=== PATIENT | female | born 1975 | race African-American/Black ===

== ENCOUNTER 2019-06-26 08:32 | Emergency (ER) | payer MEDICAID ==
[2019-06-26] MEDS ORDERED: HYDROCODONE/APAP 5/325MG TABLET PO ONE (08:53)
[2019-06-26 09:15] LABS: ABSOLUTE NEUTROPHIL COUNT 6.62; BASO % 0.4 % (0-6); EOS % 2.3 % (0-6); GRAN % 66.2 % (47-80); HEMATOCRIT 38.7 % (35.0-47.0); HEMOGLOBIN 12.3 gm/dl (11.6-16.0); MEAN CORPUSCULAR HEMOGLOBIN 32.1 pg (27-33); MEAN CORPUSCULAR HGB CONC 31.8 g/dl (32-36); MEAN PLATELET VOLUME 9.1 fl (7.4-10.4); MONO % 9.1 % (0-9); PLATELET COUNT 376 K/uL (130-400); RED BLOOD COUNT 3.83 M/uL (3.80-5.40); RED CELL DISTRIBUTION WIDTH 14.4 % (11.5-14.5)
--- NOTE | 2019-06-26 12:09 | Emergency Department Record ---
History of Present Illness - General Chief Complaint: General Stated Complaint: BREAST ISSUE Time Seen by Provider: 06/26/19 08:46 Source: Patient Mode of Arrival: Ambulatory Limitations: No limitations - History of Present Illness Initial comments: pt has had a spot on her l breast for a year that her family doctor wanted her to follow up with aspecialist which she chose not to do. today that spot has become tender and feels like it is going to explode Onset/Timin -: Year(s) Location: Other Quality: Aching, Burning Consistency: Getting worse Worsens with: Other Associated Symptoms: Denies other symptoms - [place] Coma Scale Eye Response: (4) Open spontaneously Motor Response: (6) Obeys commands Verbal Response: (5) Oriented [place] Total: 15 - Related Data Home Medications Medication Instructions Recorded Confirmed Last Taken Ibuprofen [Motrin] 800 mg PO Q6H PRN 06/26/19 06/26/19 Unknown Multivit-Min/Folic Acid/Biotin 1 each PO DAILY 06/26/19 06/26/19 Unknown [Hair, Skin & Nails Caplet] Previous Rx's Medication Instructions Recorded Amoxicillin/Potassium Clav 1 each PO BID #20 tablet 06/26/19 [Augmentin 875Mg/125Mg] Hydrocodone/Acetaminophen [[place] 1 each PO Q6HR #10 tablet 06/26/19 5-325 Tablet] Allergies Allergy/AdvReac Type Severity Reaction Status Date / Time No Known Drug Allergies Allergy Verified 06/26/19 08:42 Travel/Exposure Screening - Travel/Exposure Within Last 30 Days Have you traveled within the last 30 days?: No - Additonal Travel/Exposure Details Have you been exposed to anyone with a communicable illness?: No Review of Systems Reviewed: No additional complaints except as noted below Constitutional: Reports: As per HPI. Denies: Chills, Fever, Malaise, Night sweats, Weakness, Weight change Eyes: Reports: As per HPI. Denies: Eye discharge, Eye pain, Photophobia, Vision change ENT: Reports: As per HPI. Denies: Congestion, Dental pain, Ear pain, Epistaxis, Hearing loss, Throat pain Respiratory: Reports: As per HPI. Denies: Cough, Dyspnea, Hemoptysis, Stridor, Wheezes Cardiovascular: Reports: As per HPI. Denies: Arrhythmia, Chest pain, Dyspnea on exertion, Edema, Murmurs, Orthopnea, Palpitations, Paroxysmal nocturnal dyspnea, Rheumatic Fever, Syncope Endocrine: Reports: As per HPI. Denies: Fatigue, Heat or cold intolerance, Polydipsia, Polyuria Gastrointestinal: Reports: As per HPI. Denies: Abdominal pain, Constipation, Diarrhea, Hematemesis, Hematochezia, Melena, Nausea, Vomiting Genitourinary: Reports: As per HPI. Denies: Abnormal menses, Discharge, Dyspareunia, Dysuria, Frequency, Hematuria, Incontinence, Retention, Urgency Musculoskeletal: Reports: As per HPI. Denies: Arthralgia, Back pain, Gout, Joint swelling, Myalgia, Neck pain Skin: Reports: As per HPI. Denies: Bruising, Change in color, Change in hair/nails, Lesions, Pruritus, Rash Neurological: Reports: As per HPI. Denies: Abnormal gait, Confusion, Headache, Numbness, Paresthesias, Seizure, Tingling, Tremors, Vertigo, Weakness Psychiatric: Reports: As per HPI. Denies: Anxiety, Auditory hallucinations, Depression, Homicidal thoughts, Suicidal thoughts, Visual hallucinations Hematological/Lymphatic: Reports: As per HPI. Denies: Anemia, Blood Clots, Easy bleeding, Easy bruising, Swollen glands Past Medical History - SOCIAL HISTORY Smoking Status: Current every day smoker Alcohol Use: Occasional Drug Use: None - RESPIRATORY Hx Respiratory Disorders: No - CARDIOVASCULAR Hx Cardio Disorders: No - NEURO Hx Neuro Disorders: No - GI Hx GI Disorders: No - Hx Genitourinary Disorders: No - ENDOCRINE Hx Endocrine Disorders: No - MUSCULOSKELETAL Hx Musculoskeletal Disorders: No - PSYCH Hx Psych Problems: No - HEMATOLOGY/ONCOLOGY Hx Hematology/Oncology Disorders: No Family Medical History Any Significant Family History?: Yes Hx Cancer: Mother Hx Diabetes: Father Physical Exam - General General Appearance: Alert, Oriented x3, Cooperative, Mild distress - Head Head exam: Normal inspection - Eye Eye exam: Normal appearance, PERRL, EOMI Pupils: Normal accommodation - ENT ENT exam: Normal exam, Mucous membranes moist, Normal external ear exam, Normal orophraynx Ear exam: Normal external inspection. negative: External canal tenderness Nasal Exam: Normal inspection. negative: Discharge, Sinus tenderness Mouth exam: Normal external inspection, Tongue normal Teeth exam: Normal inspection. negative: Dental caries Throat exam: Normal inspection. negative: Tonsillar erythema, Tonsillar exudate - Neck Neck exam: Normal inspection, Full ROM. negative: Tenderness - Respiratory Respiratory exam: Normal lung sounds bilaterally, Chest wall tenderness, Other (l breast has an area of tenderness, swelling and erythems on lateral aspect). negative: Respiratory distress - Cardiovascular Cardiovascular Exam: Regular rate, Normal rhythm, Normal heart sounds - GI/Abdominal GI/Abdominal exam: Soft, Normal bowel sounds. negative: Tenderness - Rectal Rectal exam: Deferred - exam: Deferred - Extremities Extremities exam: Normal inspection, Full ROM, Normal capillary refill. negative: Tenderness - Back Back exam: Reports: Normal inspection, Full ROM. Denies: Muscle spasm, Rash noted, Tenderness - Neurological Neurological exam: Alert, CN II-XII intact, Normal gait, Oriented X3 - Psychiatric Psychiatric exam: Normal affect, Normal mood - Skin Skin exam: Dry, Intact, Normal color, Warm Course Vital Signs 06/26/19 06/26/19 08:37 11:38 Temperature 99.3 F Pulse Rate 98 H Pulse Rate [ 80 Pulse Ox Probe] Respiratory 20 20 Rate Blood Pressure 147/98 Blood Pressure 125/84 [Left Arm] Pulse Ox 100 99 - Reevaluation(s) Reevaluation #1: 06/26/19 13:55 d/w dr damon who will see pt in 2 days when he will do bx. us shows mass and states malignancy can not be excluded 06/26/19 13:56 Medical Decision Making - Lab Data Result diagrams: 06/26/19 09:00 Lab Results 06/26/19 Range/Units 09:00 WBC 10.0 (4.2-12.2) K/uL RBC 3.83 (3.80-5.40) M/uL Hgb 12.3 (11.6-16.0) gm/dl Hct 38.7 (35.0-47.0) % MCV 101.0 H (81-97) fl MCH 32.1 (27-33) pg MCHC 31.8 L (32-36) g/dl RDW 14.4 (11.5-14.5) % Plt Count 376 (130-400) K/uL MPV 9.1 (7.4-10.4) fl Gran % 66.2 (47-80) % Lymphocytes % 22.0 (16-45) % Monocytes % 9.1 H (0-9) % Eosinophils % 2.3 (0-6) % Basophils % 0.4 (0-6) % Absolute Neutrophils 6.62 Disposition Disposition: Discharge Clinical Impression: Breast mass, left Disposition: Home, Self-Care Condition: (1) Good Instructions: Breast Mass (ED) Additional Instructions: follow up with dr damon on . return sooner if worse Prescriptions: Hydrocodone/Acetaminophen [[place] 5-325 Tablet] 1 each PO Q6HR #10 tablet Amoxicillin/Potassium Clav [Augmentin 875Mg/125Mg] 1 each PO BID #20 tablet Referrals: Abdirizak Damon D.O. [DOCTOR OF OSTEOPATH] - Forms: Patient Portal Access, Return to Work/School Quality - Quality Measures Quality Measures: N/A - Blood Pressure Screening Does Patient Have Any of the Following: No Blood Pressure Classification: Hypertensive Reading Systolic Measurement: 147 Diastolic Measurement: 98 Screening for High Blood Pressure: < First Hypertensive BP, F/U Documented > [G8950] First Hypertensive Follow-up Interventions: Follow-up with rescreen GT 1 day and LT 4 weeks.
--- NOTE | 2019-06-26 12:12 | ULTRASOUND REPORT ---
EXAMINATION: Limited Left Breast Ultrasound EXAM DATE: 06/26/2019 10:33 AM TECHNIQUE: Real-time limited ultrasound evaluation of the left breast was performed. INDICATION: mass for a year COMPARISON: No comparison exam is available. FINDINGS: Within the left breast at 2:00, 5 cm from the nipple, there is a subcutaneous 1.08 cm x 1.68 cm x 1.8 cm isoechoic to hypoechoic mass. There is increased vascularity surrounding this mass. Neoplastic et iology cannot excluded. A diagnostic mammogram is recommended for further evaluation. ML projection of the left breast is recommended. Spot compression view of the left breast in the ML and CC projecti ons are recommended. Targeted ultrasound examination of the left breast is recommended. IMPRESSION: 1. Isoechoic to hypoechoic mass within the left breast at 2:00, 5 cm from the nipple is noted as katrina cribed. Neoplastic etiology cannot be excluded. I would recommend mammographic correlation as discuss ed above. BI-RADS Category: 0 Incomplete - Need Additional Imaging Evaluation and/or Prior Mammograms for Julio rison. Dictated by: Shon Barber MD on 06/26/2019 12:06 PM. .
[2019-06-26] MEDS ORDERED: AMPICILLIN SODIUM/SULBACTAM NA 3 G in 0.9 % SODIUM CHLORIDE 100ML 100 ML IVPB ONE (13:43)
== END 2019-06-26 14:42 | disposition home or self-care (01) ==
LOC: ER 08:32
DX: N63.20 Unspecified lump in the left breast, unspecified quadrant (principal); F17.210 Nicotine dependence, cigarettes, uncomplicated
CPT/HCPCS: 85025; 96365; 99284; J0295